=== PATIENT | female | born 1965 | race Caucasian/White ===

== ENCOUNTER → 2017-03-16 | Outpatient (CLI) | payer BC ==
[~2017-03-16] MED LIST: /MOXI40TA PO; /PANT40TA PO; ACET50TA PO; AUGM875T27 PO; DULC5TAB PO; FEXO60CA PO; GLUCPOW24 PO; IBUP200T2 PO; LIDO1DIS2 TD; MAAL600C PO; MULTTAB4 PO; MYLASSUD PO; NAPR500T2 PO; OMEP40CA2 PO; PRIL40CA PO; ULTR50TA PO; VENTAER IN; ZANT150T PO
--- NOTE | 2017-03-17 09:59 | REP ---
MRI RIGHT FOURTH DIGIT WITH AND WITHOUT CONTRAST: TECHNIQUE: Multiple sequences obtained in the axial, coronal and sagittal planes prior to and following the intravenous administration of 16 mL Gadolinium. Correlation made with plain films 02/01/2017. Anterior to the distal interphalangeal joint is an oval soft tissue nodule which is hypointense on T1 and relatively iso- to hypointense on T2. It measures approximately 1.8 x 1.2 x 1.5 cm. It lies along the ventral aspect of the flexor tendon and extends to the ventral skin surface. There is extension into the adjacent base of the distal phalanx with similar signal seen on T1 and T2. After the intravenous administration of contrast, there is mild heterogeneous peripheral enhancement of the soft tissue mass with a greater degree of enhancement of the lesion in the base of the distal phalanx. The communication between the soft tissue and osseous component is located laterally. 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 Signed by Leonardo Valenzuela MD 03/17/2017 02:22 P
== END ==
LOC: M RAD 17:15
PROVIDERS: ATTEND Orthopaedic Surgery
DX: R22.31 Localized swelling, mass and lump, right upper limb (principal)
CPT/HCPCS: 73220; A9576

== ENCOUNTER → 2017-05-09 | Outpatient (REF) | payer BC | LOC: M LAB REF 17:56 | PROVIDERS: ATTEND Orthopaedic Surgery | DX: M67.48 Ganglion, other site (principal) ==

== ENCOUNTER 2017-07-22 18:39 | Emergency (ER) | payer BC ==
[2017-07-22] MEDS: ACETAMINOPHEN TAB 650MG DOSE (2X325MG) PO (21:00)
== END 2017-07-22 23:30 | disposition home or self-care (01) ==
LOC: M ED 18:39
DX: S40.021A Contusion of right upper arm, initial encounter (principal); S70.11XA Contusion of right thigh, initial encounter; S60.221A Contusion of right hand, initial encounter; S60.222A Contusion of left hand, initial encounter; R07.81 Pleurodynia; M25.521 Pain in right elbow; V86.52XA Driver of snowmobile injured in nontraffic accident, initial encounter; Y92.9 Unspecified place or not applicable; Y93.89 Activity, other specified; Z87.81 Personal history of (healed) traumatic fracture; K21.9 Gastro-esophageal reflux disease without esophagitis; Z78.0 Asymptomatic menopausal state; Z87.820 Personal history of traumatic brain injury; Z87.09 Personal history of other diseases of the respiratory system; Z79.899 Other long term (current) drug therapy; Z88.5 Allergy status to narcotic agent
CPT/HCPCS: 71101

== ENCOUNTER → 2018-11-28 | Outpatient (REF) | payer BC ==
[~2018-11-28] MED LIST changes: -/MOXI40TA PO; -/PANT40TA PO; -ACET50TA PO; +AVEL1TAB2 PO; +CYCL7.5T32 PO; +FISH100049 PO; +MAPA500T17 PO; +PROT1TAB2 PO; +VITA400C97 PO
[2018-11-30 15:46] LABS: HPV HYBRID CAPTURE II Negative (Negative)
== END ==
LOC: M LAB REF 13:19
PROVIDERS: ATTEND Family Medicine
DX: Z01.419 Encounter for gynecological examination (general) (routine) without abnormal findings (principal)
CPT/HCPCS: 87624; G0123

== ENCOUNTER → 2023-05-16 | Outpatient (REF) | payer BC | LOC: M LAB REF 09:51 | PROVIDERS: ATTEND Physician Assistant | DX: R30.0 Dysuria (principal) ==

== ENCOUNTER → 2024-01-18 | Outpatient (CLI) | payer BC | LOC: M ONCR 08:54 | PROVIDERS: ATTEND General Practice | DX: D05.11 Intraductal carcinoma in situ of right breast (principal); Z71.2 Person consulting for explanation of examination or test findings; Z98.890 Other specified postprocedural states; Z98.82 Breast implant status; Z80.6 Family history of leukemia; Z80.8 Family history of malignant neoplasm of other organs or systems; Z88.5 Allergy status to narcotic agent ==

== ENCOUNTER 2024-02-23 15:48 | Outpatient (RCR) | payer BC | END 2024-02-24 | LOC: M ONCR 15:48 | PROVIDERS: ATTEND General Practice | DX: Z51.0 Encounter for antineoplastic radiation therapy (principal); D05.11 Intraductal carcinoma in situ of right breast ==

== ENCOUNTER 2024-03-20 15:49 | Outpatient (RCR) | payer BC ==
[~2024-03-20 15:49] MED LIST changes: +TRIA1CR80 TOP
== END 2024-03-25 ==
LOC: M ONCR 15:49
PROVIDERS: ATTEND General Practice
DX: Z51.0 Encounter for antineoplastic radiation therapy (principal); D05.11 Intraductal carcinoma in situ of right breast

== ENCOUNTER → 2024-09-17 | Outpatient (CLI) | payer BC | LOC: M ONCR 15:29 | PROVIDERS: ATTEND General Practice | DX: D05.11 Intraductal carcinoma in situ of right breast (principal); Z88.5 Allergy status to narcotic agent; Z92.21 Personal history of antineoplastic chemotherapy; Z92.3 Personal history of irradiation ==

== ENCOUNTER → 2025-03-20 | Outpatient (CLI) | payer BC | LOC: M ONCR 15:17 | PROVIDERS: ATTEND General Practice | DX: Z08 Encounter for follow-up examination after completed treatment for malignant neoplasm (principal); Z85.3 Personal history of malignant neoplasm of breast; Z88.5 Allergy status to narcotic agent ==